=== PATIENT | female | born 1960 | race Caucasian/White ===

== ENCOUNTER → 2020-09-07 | Outpatient (CLI) | payer OTHER | LOC: EXRD 10:44 | DX: M25.562 Pain in left knee (principal); M25.561 Pain in right knee; M19.90 Unspecified osteoarthritis, unspecified site; M25.862 Other specified joint disorders, left knee; M25.861 Other specified joint disorders, right knee; M76.9 Unspecified enthesopathy, lower limb, excluding foot | CPT/HCPCS: 73560 ==